=== PATIENT | female | born 1985 | race African-American/Black ===

== ENCOUNTER 2023-06-27 19:35 | Emergency (ER) | payer SELFPAY ==
[2023-06-27 19:36] VITALS: BP 138/74; PULSE 85; RESP 14; TEMP 36.1; O2SAT 100
--- NOTE | 2023-06-27 22:10 | ED.DENTAL ---
HPI - Dental/Oral General Chief complaint: Dental/Oral Stated complaint: dental pain Time Seen by Provider: 06/27/23 21:23 History of Present Illness HPI Narrative: 37-year-old female with a reported history of poor dentition and prior canals reports for evaluation for dental pain. Patient states she noticed pain to her right upper teeth 3 days ago. States she took ibuprofen her pain went away, however came back with a vengeance today. She contacted her dentist to cannot get her in until tomorrow. She denies fever, vomiting, difficulty breathing or tolerating secretions, trismus otalgia, sinus pressure or congestion. Related Data Allergies Allergy/AdvReac Type Severity Reaction Status Date / Time No Known Allergies Allergy Unknown Verified 11/14/12 12:01 Review of Systems Review of Systems: CONSTITUTIONAL: Denies fever, chills, or sweats. EYES: Denies visual changes, redness, or discharge. ENT: See HPI CARDIOVASCULAR: Denies chest pain, palpitations, or edema. RESPIRATORY: Denies cough or dyspnea. GASTROINTESTINAL: Denies abdominal pain, nausea, vomiting, or diarrhea. GENITOURINARY: Denies dysuria or hematuria. SKIN: Denies rash or itching. MUSCULOSKELETAL: Denies back pain, joint pain, or myalgia. NEUROLOGIC: Denies headache, numbness, or weakness. PSYCHIATRIC: Denies anxiety or depression. Exam Narrative: GENERAL: Well-appearing, well-nourished, and in no acute distress. HEAD: Normocephalic, atraumatic. EYES: PERRLA and EOMI. ENT: Nares clear, no rhinorrhea or epistaxis. Mucous membranes moist. Poor dentition and caries throughout. Tooth #5 Fractured and cavity. Edematous gingiva superior to the tooth with a central pinpoint area of purulence which was able to be expressed with a small amount of pressure. No fluctuance or induration. No evidence of deep space abscess. Floor mouth is soft without crepitus. No facial edema, erythema. Patient is tolerating her secretions. No trismus. Bilateral TMs are ramirez nonbulging. Normal canals. NECK: Supple. CHEST: Clear to auscultation. No respiratory distress. HEART: Regular rate and rhythm. No murmur heard. Normal peripheral pulses. EXTREMITIES: Normal range of motion. No edema. SKIN: Warm, dry, no rash. NEURO: No focal deficits. Alert and oriented x3 Course Vital Signs Vital signs: Vital Signs Temperature 97 F L 06/27/23 19:36 Pulse Rate 85 06/27/23 19:36 Respiratory Rate 14 06/27/23 19:36 Blood Pressure 138/74 06/27/23 19:36 Pulse Oximetry 100 06/27/23 19:36 Oxygen Delivery Room Air 06/27/23 19:36 Temperature 97 F L 06/27/23 19:36 Pulse Rate 85 06/27/23 19:36 Respiratory Rate 14 06/27/23 19:36 Blood Pressure 138/74 06/27/23 19:36 Pulse Oximetry 100 06/27/23 19:36 Oxygen Delivery Room Air 06/27/23 19:36 MDM - Dental/Oral MDM Narrative Medical decision making narrative: 37-year-old female reports for evaluation for dental pain x3 days. See HPI for further history. Vitals are stable and she is afebrile. Exam is significant for a small periapical abscess and dental caries which was easily expressed on exam. No evidence of deep space infection. She is tolerating her secretions, no trismus. Plan to start her on Augmentin and encouraged her to follow closely with her dentist. Encouraged Tylenol and ibuprofen for pain. Strict ED return precautions discussed. She is agreeable to plan verbalized understanding. Discharged in stable condition. Discharge Plan Discharge Clinical Impression: Dental caries, Abscess, periapical Patient Disposition: Home, Self-Care Condition: Stable Instructions: Antibiotic Form, Toothache (ED) Additional Instructions: you were evaluated in the emergency department for a toothache. Your exam is consistent with 4 cassidy tissue and, cracked teeth and cavities. I surgeon antibiotics, please take these as directed and follow-up closely with your dentist. Return to
[2023-06-27] MEDS: HYDROcodone/acetaminophen (*CRX) 5-325 MG TABLET 1 TAB PO (22:22)
[2023-06-27] MEDS: AMOXICILLIN/CLAVULANATE K 875-125 MG TAB 1 TABLET PO (22:23)
== END 2023-06-27 22:37 | disposition home or self-care (01) ==
LOC: ANHED 22:31
PROVIDERS: Emergency Provider Physician Assistant
DX: K02.9 Dental caries, unspecified (principal); K04.7 Periapical abscess without sinus
CPT/HCPCS: 99283; A9270

== ENCOUNTER 2024-01-30 19:54 | Emergency (ER) | payer SELFPAY ==
[2024-01-30 20:09] VITALS: BP 120/76; PULSE 64; RESP 16; TEMP 36.3; O2SAT 100
--- NOTE | 2024-01-30 22:04 | ED.GENADULT ---
HPI - General Adult General Chief complaint: Dental/Oral Stated complaint: tooth pain Time Seen by Provider: 01/30/24 22:03 History of Present Illness HPI narrative: Patient is a 38-year-old female who presents emergency department chief complaint of dental pain. Patient reports that started having pain in the lower molar on the left side reports there has been some swelling patient reports she has been unable to get in to see her dentist today and reports that she has concerns that she may need to be started on antibiotics. Related Data Allergies Allergy/AdvReac Type Severity Reaction Status Date / Time No Known Allergies Allergy Unknown Verified 01/30/24 20:11 Review of Systems Review of Systems: A 10 system review of systems was completed on the patient and is negative except for what is stated in the HPI. Nursing and ancillary documentation was reviewed. Exam Narrative: GENERAL: Well-appearing, well-nourished, and in no acute distress. HEAD: Normocephalic, atraumatic. EYES: PERRLA and EOMI. ENT: Nares clear, no rhinorrhea or epistaxis. Mucous membranes moist. Dental caries present lower mandibular portion on the left no appreciable abscess no necrotic tissue, no subcu emphysema NECK: Supple. CHEST: Clear to auscultation. No respiratory distress. HEART: Regular rate and rhythm. No murmur heard. Normal peripheral pulses. ABDOMEN: Soft, nontender, nondistended, normal active bowel sounds. EXTREMITIES: Normal range of motion. No edema. SKIN: Warm, dry, no rash. NEURO: No focal deficits. Alert and oriented x3. PSYCH: Normal mood and affect. Course Vital Signs Vital signs: Vital Signs Temperature 36.3 C L 01/30/24 20:09 Pulse Rate 64 01/30/24 20:09 Respiratory Rate 16 01/30/24 20:09 Blood Pressure 120/76 01/30/24 20:09 Pulse Oximetry 100 01/30/24 20:09 Oxygen Delivery Room Air 01/30/24 20:09 Temperature 36.3 C L 01/30/24 20:09 Pulse Rate 64 01/30/24 20:09 Respiratory Rate 16 01/30/24 20:09 Blood Pressure 120/76 01/30/24 20:09 Pulse Oximetry 100 01/30/24 20:09 Oxygen Delivery Room Air 01/30/24 20:09 Medical Decision Making [facility] Narrative Medical decision making narrative: Differential diagnosis includes dental caries, dental abscess, Alonso's angina, Patient was given amoxicillin and given [place] in the emergency department. The patient follow-up with a dentist as soon as possible the patient was instructed to return cautions Vital Signs Vital Signs: Vital Signs Temperature 36.3 C L 01/30/24 20:09 Pulse Rate 64 01/30/24 20:09 Respiratory Rate 16 01/30/24 20:09 Blood Pressure 120/76 01/30/24 20:09 Pulse Oximetry 100 01/30/24 20:09 Oxygen Delivery Room Air 01/30/24 20:09 Temperature 36.3 C L 01/30/24 20:09 Pulse Rate 64 01/30/24 20:09 Respiratory Rate 16 01/30/24 20:09 Blood Pressure 120/76 01/30/24 20:09 Pulse Oximetry 100 01/30/24 20:09 Oxygen Delivery Room Air 01/30/24 20:09 Discharge Plan Discharge Clinical Impression: Dental caries Patient Disposition: Home, Self-Care Condition: Stable Instructions: Antibiotic Form, Dental Abscess (ED), Toothache (ED) Prescriptions: New amoxicillin 500 mg capsule 500 mg PO Q12H Qty: 20 0RF hydrocodone-acetaminophen 5-325 mg tablet 1 tablet PO Q6H PRN (Reason: pain) 3 Days Qty: 12 0RF Follow-up/Referrals: Guido Solares MD [Physician] - UNKNOWN,DOCTOR [Primary Care Provider] - Stand Alone Forms: Work/School Release IP Time of Disposition: 22:08
[2024-01-30] MEDS: HYDROcodone/acetaminophen (*CRX) 5-325 MG TABLET 1 TAB PO (22:07)
[2024-01-30] MEDS: AMOXICILLIN 500 MG CAPSULE PO (22:07)
[2024-01-30 22:13] VITALS: BP 113/76; PULSE 86; RESP 16; TEMP 36.4; O2SAT 98
== END 2024-01-30 22:25 | disposition home or self-care (01) ==
LOC: ANHED 22:15
PROVIDERS: Emergency Provider Emergency Medicine
DX: K02.9 Dental caries, unspecified (principal)
CPT/HCPCS: 99283; A9270